=== PATIENT | female | born 1940 | race African-American/Black ===

== ENCOUNTER 2020-06-15 12:20 | Inpatient (IN) | payer OTHER ==
[2020-06-15] MEDS ORDERED: DEXAMETHASONE SOD PHOSPHATE 4 MG/1 ML VIAL IVPUSH ONE (13:21)
[2020-06-15] MEDS ORDERED: DEXAMETHASONE SOD PHOSPHATE 10 MG/1 ML VIAL ONE (14:03)
[2020-06-15 14:04] LABS: INR 1.39 (0.83-1.09); PROTHROMBIN TIME (PATIENT) 16.7 SEC (9.7-13.0)
[2020-06-15 14:05] LABS: HEMATOCRIT 38.7 % (32.4-45.2); HEMOGLOBIN 12.5 GM/dL (10.7-15.3); MCH 28.1 pg (25.7-33.7); MCHC 32.3 g/dl (32.0-36.0); MEAN CELL VOLUME 87.2 fl (80-96); MEAN PLT VOLUME 10.7 fl (7.5-11.1); PLATELET COUNT 150 K/MM3 (134-434); RBC 4.44 M/mm3 (3.60-5.2); RDW 13.3 % (11.6-15.6); WHITE BLOOD COUNT 4.1 K/mm3 (4.0-10.0)
[2020-06-15 14:07] LABS: ACTIVATED PTT 37.4 SECONDS (25.2-36.5)
[2020-06-15 14:24] LABS: CALCIUM 8.5 mg/dL (8.5-10.1)
[2020-06-15 14:25] LABS: ALBUMIN 3.5 g/dl (3.4-5.0)
[2020-06-15 14:37] LABS: BILIRUBIN,TOTAL 0.4 mg/dL (0.2-1); BLOOD UREA NITROGEN 44.3 mg/dL (7-18)
[2020-06-15] MEDS ORDERED: SODIUM CHLORIDE 500 ML IV STA (14:52)
[2020-06-16 02:05] LABS: EPI CELLS 16 /uL (0-25.1); HYALINE CASTS 2 /uL (0-3.1); URINE APPEARANCE Error; URINE BACTERIA 458 /uL (0-1359); URINE BILIRUBIN NEGATIVE (NEGATIVE); URINE COLOR YELLOW; URINE GLUCOSE (UA) NEGATIVE (NEGATIVE); URINE KETONE NEGATIVE (NEGATIVE); URINE LEUK ESTERASE NEGATIVE (NEGATIVE); URINE NITRITE NEGATIVE (NEGATIVE); URINE PROTEIN 1+ (NEGATIVE); URINE RBC 20 /uL (0-23.9); URINE UROBILINOGEN 0.2 mg/dL (0.2-1.0); URINE WBC 6 /uL (0-25.8)
[2020-06-16] MEDS ORDERED: DEXTROSE 5%-1/3 NS - 500 ML IV SCH (09:30)
[2020-06-16] MEDS ORDERED: CEFTRIAXONE 1,000 GM in DEXTROSE 5%-WATER - 50 ML IVPB ONE (11:20)
[2020-06-16] MEDS ORDERED: AZITHROMYCIN IVPB 500 MG/250 ML BAG IVPB SCH (12:00)
[2020-06-16] MEDS ORDERED: CEFTRIAXONE 1 GM in DEXTROSE 5%-WATER - 50 ML IVPB ONE (12:15)
[2020-06-16] MEDS: LACTATED RINGERS SOLUTION 1,000 ML/1,000 ML INFUS.BAG IV SCH (12:19)
[2020-06-16] MEDS: DEXAMETHASONE SOD PHOSPHATE 4 MG/1 ML VIAL IVPUSH SCH (12:23)
[2020-06-16] MEDS ORDERED: DEXTROSE 5%-WATER - 50 ML IVPB ONE (12:55)
[2020-06-16] MEDS ORDERED: cefTRIAXone SODIUM 1 GM VIAL ONE (12:55)
[2020-06-16] MEDS ORDERED: FLU VACCINE (FLULAVAL) PF 60 MCG/0.5 ML SYRINGE 2020-2021 IM ONE (13:00)
[2020-06-16 13:11] LABS: HEMATOCRIT 36.8 % (32.4-45.2); MCH 28.2 pg (25.7-33.7); MCHC 32.6 g/dl (32.0-36.0); MEAN CELL VOLUME 86.4 fl (80-96); MEAN PLT VOLUME 10.2 fl (7.5-11.1); PLATELET COUNT 170 K/MM3 (134-434); RBC 4.26 M/mm3 (3.60-5.2); RDW 13.1 % (11.6-15.6); WHITE BLOOD COUNT 6.3 K/mm3 (4.0-10.0)
[2020-06-16 13:21] LABS: INR 1.18 (0.83-1.09); PROTHROMBIN TIME (PATIENT) 14.5 SEC (9.7-13.0)
[2020-06-16 13:35] LABS: POTASSIUM 5.1 mmol/L (3.5-5.1)
[2020-06-16 13:37] LABS: BLOOD UREA NITROGEN 61.3 mg/dL (7-18); CALCIUM 9.1 mg/dL (8.5-10.1); MAGNESIUM 2.3 mg/dL (1.8-2.4)
[2020-06-16 13:41] LABS: CREATININE 2.2 mg/dL (0.55-1.3); PHOSPHOROUS 3.7 mg/dL (2.5-4.9)
[2020-06-16] MEDS: WARFARIN NA 2 MG TABLET PO SCH (17:36)
[2020-06-17 08:19] LABS: POTASSIUM 5.3 mmol/L (3.5-5.1)
[2020-06-17 08:25] LABS: ALBUMIN 2.9 g/dl (3.4-5.0); BLOOD UREA NITROGEN 53.8 mg/dL (7-18)
[2020-06-17 08:27] LABS: CREATININE 1.7 mg/dL (0.55-1.3)
[2020-06-17 08:30] LABS: BILIRUBIN,TOTAL 0.4 mg/dL (0.2-1)
[2020-06-17] MEDS: DEXAMETHASONE SOD PHOSPHATE 4 MG/1 ML VIAL IVPUSH SCH (09:12)
[2020-06-17] MEDS: LACTATED RINGERS SOLUTION 1,000 ML/1,000 ML INFUS.BAG IV SCH (11:45)
[2020-06-17] MEDS ORDERED: SODIUM ZIRCONIUM CYCLOSILICATE (LOKELMA) 5 GM PACKET PO ONE (12:35)
[2020-06-17 16:42] LABS: PH,URINE 5.5 (5.0-8.0); URINE APPEARANCE CLEAR; URINE BILIRUBIN NEGATIVE (NEGATIVE); URINE COLOR YELLOW; URINE GLUCOSE (UA) NEGATIVE (NEGATIVE); URINE KETONE NEGATIVE (NEGATIVE); URINE LEUK ESTERASE NEGATIVE (NEGATIVE); URINE NITRITE NEGATIVE (NEGATIVE); URINE PROTEIN TRACE (NEGATIVE); URINE UROBILINOGEN 0.2 mg/dL (0.2-1.0)
[2020-06-17] MEDS: WARFARIN NA 2 MG TABLET PO SCH (17:05)
[2020-06-17] MEDS: ASCORBIC ACID 500 MG TABLET (FP) PO SCH (20:59)
[2020-06-17 23:51] LABS: EPI CELLS 4 /uL (0-25.1); HYALINE CASTS 0 /uL (0-3.1); URINE BACTERIA 206 /uL (0-1359); URINE RBC 16 /uL (0-23.9); URINE WBC 5 /uL (0-25.8)
[2020-06-18] MEDS: DEXAMETHASONE SOD PHOSPHATE 4 MG/1 ML VIAL IVPUSH SCH (09:32)
[2020-06-18] MEDS: CHOLECALCIFEROL (VIT D3) 5000 UNITS (125 MCG) CAP PO SCH (09:33)
[2020-06-18] MEDS: ZINC SULFATE 220 MG CAPSULE (FP) PO SCH (09:33)
[2020-06-18] MEDS: ASCORBIC ACID 500 MG TABLET (FP) PO SCH ×2 (09:33→21:24)
[2020-06-18 14:17] LABS: POTASSIUM 4.5 mmol/L (3.5-5.1)
[2020-06-18 14:20] LABS: BLOOD UREA NITROGEN 38.4 mg/dL (7-18); CALCIUM 8.9 mg/dL (8.5-10.1)
[2020-06-18 14:23] LABS: CREATININE 1.3 mg/dL (0.55-1.3)
[2020-06-18 14:25] LABS: BILIRUBIN,TOTAL 0.3 mg/dL (0.2-1); TOT PROT 7.2 g/dl (6.4-8.2)
[2020-06-18] MEDS ORDERED: REMDESIVIR 200 MG in SODIUM CHLORIDE 210 ML IVPB ONE (16:00)
[2020-06-18] MEDS: WARFARIN NA 5 MG TABLET PO SCH (17:58)
[2020-06-19] MEDS: DEXAMETHASONE SOD PHOSPHATE 4 MG/1 ML VIAL IVPUSH SCH (09:52)
[2020-06-19] MEDS: ZINC SULFATE 220 MG CAPSULE (FP) PO SCH (09:53)
[2020-06-19] MEDS: ASCORBIC ACID 500 MG TABLET (FP) PO SCH ×2 (09:54→20:59)
[2020-06-19] MEDS: CHOLECALCIFEROL (VIT D3) 5000 UNITS (125 MCG) CAP PO SCH (09:54)
[2020-06-19] MEDS: REMDESIVIR 100 MG in SODIUM CHLORIDE 230 ML IVPB SCH (15:29)
[2020-06-19] MEDS: WARFARIN NA 5 MG TABLET PO SCH (17:05)
[2020-06-20 07:26] LABS: INR 1.36 (0.83-1.09); PROTHROMBIN TIME (PATIENT) 16.3 SEC (9.7-13.0)
[2020-06-20] MEDS: DEXAMETHASONE SOD PHOSPHATE 4 MG/1 ML VIAL IVPUSH SCH (09:28)
[2020-06-20] MEDS: CHOLECALCIFEROL (VIT D3) 5000 UNITS (125 MCG) CAP PO SCH (09:30)
[2020-06-20] MEDS: ASCORBIC ACID 500 MG TABLET (FP) PO SCH ×2 (09:30→21:26)
[2020-06-20] MEDS: ZINC SULFATE 220 MG CAPSULE (FP) PO SCH (09:30)
[2020-06-20] MEDS: REMDESIVIR 100 MG in SODIUM CHLORIDE 230 ML IVPB SCH (14:59)
[2020-06-20] MEDS: WARFARIN NA 5 MG TABLET PO SCH (17:01)
[2020-06-21 08:49] LABS: BASO % 0.1 % (0-2.0); EOS % 0.1 % (0-4.5); HEMATOCRIT 39.1 % (32.4-45.2); HEMOGLOBIN 12.9 GM/dL (10.7-15.3); LYMPH % 6.6 % (8-40); MCH 28.4 pg (25.7-33.7); MCHC 32.9 g/dl (32.0-36.0); MEAN CELL VOLUME 86.3 fl (80-96); MONO % 3.1 % (3.8-10.2); NEUT % 90.1 % (42.8-82.8); PLATELET COUNT 302 K/MM3 (134-434); RBC 4.54 M/mm3 (3.60-5.2); RDW 13.2 % (11.6-15.6); WHITE BLOOD COUNT 7.6 K/mm3 (4.0-10.0)
[2020-06-21 08:50] LABS: INR 1.6 (0.83-1.09); PROTHROMBIN TIME (PATIENT) 19.1 SEC (9.7-13.0)
[2020-06-21 09:06] LABS: POTASSIUM 4.4 mmol/L (3.5-5.1)
[2020-06-21 09:09] LABS: BLOOD UREA NITROGEN 30.1 mg/dL (7-18)
[2020-06-21 09:10] LABS: ALBUMIN 2.9 g/dl (3.4-5.0); CALCIUM 9.5 mg/dL (8.5-10.1)
[2020-06-21 09:12] LABS: CREATININE 1.1 mg/dL (0.55-1.3)
[2020-06-21 09:13] LABS: BILIRUBIN,TOTAL 0.4 mg/dL (0.2-1)
[2020-06-21 09:44] LABS: PLATELET ESTIMATE NORMAL
[2020-06-21 09:45] VITALS: BMI 32.8
[2020-06-21] MEDS: DEXAMETHASONE SOD PHOSPHATE 4 MG/1 ML VIAL IVPUSH SCH (10:26)
[2020-06-21] MEDS: ZINC SULFATE 220 MG CAPSULE (FP) PO SCH (10:26)
[2020-06-21] MEDS: ASCORBIC ACID 500 MG TABLET (FP) PO SCH ×2 (10:26→21:38)
[2020-06-21] MEDS: CHOLECALCIFEROL (VIT D3) 5000 UNITS (125 MCG) CAP PO SCH (10:27)
[2020-06-21] MEDS: WARFARIN NA 3 MG TABLET PO SCH (17:15)
[2020-06-21] MEDS: REMDESIVIR 100 MG in SODIUM CHLORIDE 230 ML IVPB SCH (17:43)
[2020-06-22 08:25] LABS: BASO % 0.5 % (0-2.0); EOS % 0.1 % (0-4.5); HEMATOCRIT 35.1 % (32.4-45.2); HEMOGLOBIN 11.6 GM/dL (10.7-15.3); LYMPH % 7.9 % (8-40); MCH 28.3 pg (25.7-33.7); MEAN CELL VOLUME 85.9 fl (80-96); MONO % 9.2 % (3.8-10.2); NEUT % 82.3 % (42.8-82.8); PLATELET COUNT 287 K/MM3 (134-434); RBC 4.09 M/mm3 (3.60-5.2); WHITE BLOOD COUNT 7.9 K/mm3 (4.0-10.0)
[2020-06-22 08:28] LABS: INR 1.88 (0.83-1.09); PROTHROMBIN TIME (PATIENT) 22.7 SEC (9.7-13.0)
[2020-06-22 08:47] LABS: POTASSIUM 4.8 mmol/L (3.5-5.1)
[2020-06-22 08:53] LABS: CALCIUM 9.1 mg/dL (8.5-10.1)
[2020-06-22 08:54] LABS: BLOOD UREA NITROGEN 33.4 mg/dL (7-18)
[2020-06-22 08:57] LABS: CREATININE 1.2 mg/dL (0.55-1.3)
[2020-06-22] MEDS: CHOLECALCIFEROL (VIT D3) 5000 UNITS (125 MCG) CAP PO SCH (09:54)
[2020-06-22] MEDS: ZINC SULFATE 220 MG CAPSULE (FP) PO SCH (09:54)
[2020-06-22] MEDS: ASCORBIC ACID 500 MG TABLET (FP) PO SCH ×2 (09:54→21:04)
[2020-06-22] MEDS: DEXAMETHASONE SOD PHOSPHATE 4 MG/1 ML VIAL IVPUSH SCH (09:54)
[2020-06-22] MEDS: REMDESIVIR 100 MG in SODIUM CHLORIDE 230 ML IVPB SCH (16:28)
[2020-06-22] MEDS: WARFARIN NA 3 MG TABLET PO SCH (17:07)
[2020-06-23] MEDS ORDERED: PT OWN MED DRAWER 7, Y5N ONE (08:56)
[2020-06-23] MEDS: CHOLECALCIFEROL (VIT D3) 5000 UNITS (125 MCG) CAP PO SCH (09:22)
[2020-06-23] MEDS: ZINC SULFATE 220 MG CAPSULE (FP) PO SCH (09:23)
[2020-06-23] MEDS: ASCORBIC ACID 500 MG TABLET (FP) PO SCH (09:23)
[2020-06-23] MEDS: DEXAMETHASONE SOD PHOSPHATE 4 MG/1 ML VIAL IVPUSH SCH (09:24)
[2020-06-23 10:41] VITALS: PULSE 107
[2020-06-23 10:43] VITALS: BP 138/71; TEMP 98.5
== END 2020-06-23 15:18 | disposition home health service (06) | DRG 177 ==
LOC: JER 12:20 → JERBED 15:31 → J7W 21:00
PROVIDERS: ADMIT Internal Medicine; ATTEND Internal Medicine
PROC: XW033E5 Introduction of Remdesivir Anti-infective into Peripheral Vein, Percutaneous Approach, New Technology Group 5 (ICD-10-PCS; principal; 2020-06-18)
DX: U07.1 COVID-19 (principal); J12.82 Pneumonia due to coronavirus disease 2019; J96.01 Acute respiratory failure with hypoxia; N17.9 Acute kidney failure, unspecified; I48.91 Unspecified atrial fibrillation; E78.5 Hyperlipidemia, unspecified; I11.0 Hypertensive heart disease with heart failure; I50.9 Heart failure, unspecified; Z79.01 Long term (current) use of anticoagulants
CPT/HCPCS: 36415; 71045-TC-FY; 80048; 80053; 81003; 82436; 82565; 82728; 83735; 84100; 84133; 84300; 85025; 85027; 85379; 85610; 85730; 86140; 86900; 87086; 87426; 93005; 93010; 94761; 97116-GP; 97161-GP; 99285-25; C9399